=== PATIENT | female | born 1955 | race Caucasian/White ===

== ENCOUNTER 2016-10-24 12:08 | Emergency (ER) | payer OTHER ==
[~2016-10-24 12:08] MED LIST: BIOTIN1000 MICRO PO; CELEXA40 MG PO; CINNAMON500 MG PO; IRON325 MG PO; LANTUS 10100 UNITS/ SC; LYRICA200 MG PO; MICRONASE5 MG PO; NAPROXEN500 MG PO; NORCO 5/3251 TABLET PO; PERCOCET 5/31 TABLET PO; PRAVACHOL40 MG PO; PRILOSEC20 MG PO; TRAZODONE HCL50 MG PO; ULTRAM50 MG PO
[2016-10-24] MEDS ORDERED: NORCO 5/3251 TABLET PO (13:32)
[2016-10-24 13:56] VITALS: BP 120/88
== END 2016-10-24 13:57 | disposition home or self-care (01) ==
LOC: EME 12:08 → RME 12:08
DX: S93.401A Sprain of unspecified ligament of right ankle, initial encounter (principal); S92.514A Nondisplaced fracture of proximal phalanx of right lesser toe(s), initial encounter for closed fracture; S91.201A Unspecified open wound of right great toe with damage to nail, initial encounter; W10.9XXA Fall (on) (from) unspecified stairs and steps, initial encounter; E11.9 Type 2 diabetes mellitus without complications; Z79.4 Long term (current) use of insulin
CPT/HCPCS: 73630; 99281; 99283

== ENCOUNTER 2017-01-04 16:45 | Observation (INO) | payer OTHER ==
[~2017-01-04] VITALS: Ht 157.5 cm; Wt 92.0 kg
[2017-01-04 10:30] VITALS: BP 147/85
[2017-01-04] MEDS ORDERED: PERCOCET 5/31 TABLET PO (19:01)
[2017-01-04] MEDS ORDERED: ROPINIROLE HCL4 MG PO (20:30)
[2017-01-04] MEDS ORDERED: PHENTERMINE HCL30 MG PO (20:30)
[2017-01-04] MEDS ORDERED: VENTOLIN HFA18 GM IH (20:31)
[2017-01-04] MEDS ORDERED: TIZANIDINE HCL4 MG PO (20:31)
[2017-01-04] MEDS ORDERED: PROZAC40 MG PO (20:32)
[2017-01-04] MEDS ORDERED: LO-DOSE ASPIRIN81 M2 PO (20:32)
[2017-01-04] MEDS ORDERED: VITAMIN B-12250 MCG PO (20:33)
[2017-01-05 04:24] VITALS: BP 125/75
[2017-01-05 06:34] LABS: POINT-OF-CARE METER ID UU14188577
[2017-01-05 08:43] VITALS: BP 128/80
[2017-01-05] MEDS ORDERED: PERCOCET 5/31 TABLET PO (09:18)
[2017-01-05 11:23] LABS: POINT-OF-CARE METER ID UU14188577
[2017-01-05 11:41] VITALS: BP 134/82
== END 2017-01-05 15:46 | disposition home or self-care (01) ==
LOC: EME 16:45 → ENRESERV 19:48 → EDOF 19:48 → 3EAST 19:48 → ENRESERV 20:05 → 3EAST 22:11
PROVIDERS: Orthopaedic Surgery
PROC: 0QSGXZZ Reposition Right Tibia, External Approach (ICD-10-PCS; principal; 2017-01-04)
DX: S82.851A Displaced trimalleolar fracture of right lower leg, initial encounter for closed fracture (principal); G89.11 Acute pain due to trauma; W01.0XXA Fall on same level from slipping, tripping and stumbling without subsequent striking against object, initial encounter; Y93.89 Activity, other specified; Y92.9 Unspecified place or not applicable; Y99.8 Other external cause status; E11.9 Type 2 diabetes mellitus without complications; K21.9 Gastro-esophageal reflux disease without esophagitis; E78.5 Hyperlipidemia, unspecified; Z79.4 Long term (current) use of insulin
CPT/HCPCS: 73600; 73610; 82948; 90686; 99202; 99281; 99285; G0378; J1650; J2270; J3010

== ENCOUNTER 2017-01-19 11:37 | Day surgery (SDC) | payer OTHER ==
[~2017-01-19] VITALS: Ht 157.5 cm; Wt 82.6 kg
[~2017-01-19 11:37] MED LIST changes: +CYANOCOBALAM1000 MCG PO; +LO-DOSE ASPIRIN81 M2 PO; +MAGNESIUM400 M1 PO; +PHENTERMINE HCL30 MG PO; +PROZAC40 MG PO; +REQUIP4 MG PO; +ROPINIROLE HCL4 MG PO; +TIZANIDINE HCL4 MG PO; +VENTOLIN HFA18 GM IH; +ZANAFLEX4 MG PO
[2017-01-19 12:02] VITALS: BP 151/84
[2017-01-19 12:09] LABS: POINT-OF-CARE METER ID UU14174212
[2017-01-19 12:10] VITALS: BP 151/84
[2017-01-19 12:46] LABS: HEMATOCRIT 39.2 % (36.0-46.0); MCV 86.5 FL (83-99)
[2017-01-19 17:16] LABS: POINT-OF-CARE METER ID UU13113675
[2017-01-19 18:55] VITALS: BP 110/81
[2017-01-19 19:32] VITALS: BP 115/66
== END 2017-01-19 19:35 | disposition home or self-care (01) ==
LOC: SDC 11:37
PROVIDERS: Orthopaedic Surgery
DX: S82.841A Displaced bimalleolar fracture of right lower leg, initial encounter for closed fracture (principal); W01.0XXA Fall on same level from slipping, tripping and stumbling without subsequent striking against object, initial encounter; Y92.89 Other specified places as the place of occurrence of the external cause; E11.9 Type 2 diabetes mellitus without complications; K21.9 Gastro-esophageal reflux disease without esophagitis; E78.00 Pure hypercholesterolemia, unspecified; F41.8 Other specified anxiety disorders; J45.909 Unspecified asthma, uncomplicated; Z79.4 Long term (current) use of insulin; Z79.82 Long term (current) use of aspirin
CPT/HCPCS: 73610; 76000; 82948; 85014; 85018; 86850; 86900; 86901; C1713; J0330; J0690; J1170; J2250; J2405; J2795; J3010; J7030; Q0175